=== PATIENT | male | born 1960 | race African-American/Black ===

== ENCOUNTER 2018-10-15 17:53 | Emergency (ER) | payer SELFPAY ==
[~2018-10-15] VITALS: Ht 185.4 cm; Wt 98.0 kg
[2018-10-15 23:56] LABS: CHLORIDE 106 mEq/L (98-107)
[2018-10-15 23:57] LABS: BASOPHILS % 0.5 % (0.0-2.0); EOSINOPHILS % 5.7 % (0.0-5.0); HEMATOCRIT. 37.7 % (42.0-52.0); HEMOGLOBIN. 12.2 g/dL (14.0-18.0); LYMPHOCYTES % 27.2 % (20.0-50.0); MEAN CORPUSCULAR HEMOGLOBIN 27.9 pg (28.0-32.0); MEAN CORPUSCULAR VOLUME 86.1 fL (80.0-94.0); MEAN PLATELET VOLUME 7.5 fl (7.4-10.4); MONOCYTES % 8.2 % (2.0-8.0); NEUTROPHILS % 58.4 % (40.0-76.0); PLATELET 383 x1000/uL (130-400); RED BLOOD CELL COUNT 4.38 mill/uL (4.7-6.1); RED CELL DISTRIBUTION WIDTH 16.2 % (11.6-14.6)
[2018-10-16 00:01] LABS: PARTIAL THROMBOPLASTIN TIME 27.3 sec (23.4-31.0)
[2018-10-16] MEDS ORDERED: ACETAMINOPHEN 325MG TABLET PO ONE (01:15)
[2018-10-16 01:44] VITALS: BP 138/76
== END 2018-10-16 01:48 | disposition home or self-care (01) ==
LOC: ER 17:53
DX: M25.572 Pain in left ankle and joints of left foot (principal); M25.571 Pain in right ankle and joints of right foot; M79.662 Pain in left lower leg; M79.661 Pain in right lower leg; E11.9 Type 2 diabetes mellitus without complications
CPT/HCPCS: 36415; 80048; 93005; 93970; 99284